=== PATIENT | female | born 2000 ===

== ENCOUNTER 2022-02-17 12:25 | Inpatient (IN) | payer OTHER ==
[2022-02-17] VITALS (26 sets, daily range): BP systolic 89–148; BP diastolic 61–113; PULSE 66–102; TEMP 97.6–98.1
[~2022-02-17] VITALS: Ht 160 cm; Wt 70.5 kg
--- NOTE | 2022-02-17 12:35 | NUR ---
Patient ambulatory to LR4, changed into gown, FHR/TOCO monitors placed and explained. Patient states she had a gush of fluid at about 1015 and has continued to leak clear fluid/pink tinged. Patient denies any regular contractions/vaginal bleeding/decreased movement. Plan of care discussed. This RN swabs pad with amniotest and turns positive. SVE-2/70/-2 and amniotest negative. 1315: IV started in right hand, labs obtained, flushed.
[2022-02-17] MEDS ORDERED: PRENATAL (13:00)
[2022-02-17] MEDS ORDERED: LOVENOX 6060 MG/0.6 SQ (13:01)
[2022-02-17 13:17] LABS: BASO # 0.1 K/mm3 (0.0-0.2); BASO % 0.4 % (0.0-2.0); EOS # 0.1 K/mm3 (0.0-0.7); EOS % 0.5 % (0.0-4.0); GRAN # 11.7 K/mm3 (1.4-6.5); GRAN % 84.2 % (42.2-75.2); HEMOGLOBIN 11.5 g/dl (12.5-16.0); LYMPH # 1.1 K/mm3 (1.2-3.4); MEAN CELL VOLUME 86 fl (80.0-100.0); MEAN CORPUSCULAR HEMOGLOBIN 28 pg (27-31); MEAN CORPUSCULAR HGB CONC 33 g/dl (33.0-37.0); MEAN PLATELET VOLUME 11.7 fl (7.4-10.4); MONO # 0.8 K/mm3 (0.1-0.6); MONO % 5.5 % (1.7-9.3); PLATELET COUNT 203 K/mm3 (130-400); RED BLOOD COUNT 4.09 M/mm3 (4.10-5.30); REDCELL DISTRIBUTION WIDTH-CV 13.8 % (11.5-14.5)
[2022-02-17 13:20] LABS: HEMATOCRIT 35.3 % (37.0-47.0)
[2022-02-17 14:23] LABS: PROTHROMBIN TIME 10.9 SECONDS (9.7-12.8)
[2022-02-17 14:25] LABS: PARTIAL THROMBOPLASTIN TIME 28.2 SECONDS (26.0-37.0)
[2022-02-17 14:29] LABS: ALBUMIN 2.6 gm/dL (3.5-5.0); BILIRUBIN,TOTAL 0.3 mg/dL (0.2-1.2); CALCIUM 8.2 mg/dL (8.4-10.2); CREATININE, serum 0.56 mg/dL (0.57-1.11); POTASSIUM 3.9 mmol/L (3.5-4.5); TOTAL PROTEIN 6.9 gm/dL (6.2-8.1)
--- NOTE | 2022-02-17 15:45 | NUR ---
1410 Heparin Bolus given. 1420 Heparin drip starts infusing. 1438 Dr. Meyers requests heparin drip to be stopped due to FHR decelerations. 1450 Dr. Meyers called after prolonged late deceleration. 1505 Dr. Meyers at patient's bedside. SVE /-2. SVE unchanged since [address] Meyers discusses section and general anethesia with patient. Patient verbalizes understanding.
[2022-02-17 21:22] LABS: HEMOGLOBIN 11.6 g/dl (12.5-16.0)
[2022-02-17 21:24] LABS: HEMATOCRIT 36.3 % (37.0-47.0)
[2022-02-18 00:20] VITALS: BP 116/73; PULSE 76; TEMP 97.7
[2022-02-18 04:00] VITALS: BP 114/67; PULSE 69; TEMP 98.6
[2022-02-18 05:59] LABS: HEMOGLOBIN 10.6 g/dl (12.5-16.0); MEAN CELL VOLUME 90 fl (80.0-100.0); MEAN CORPUSCULAR HEMOGLOBIN 28 pg (27-31); MEAN CORPUSCULAR HGB CONC 32 g/dl (33.0-37.0); MEAN PLATELET VOLUME 12.2 fl (7.4-10.4); PLATELET COUNT 218 K/mm3 (130-400); RED BLOOD COUNT 3.73 M/mm3 (4.10-5.30); REDCELL DISTRIBUTION WIDTH-CV 13.7 % (11.5-14.5)
[2022-02-18 06:06] LABS: HEMATOCRIT 33.5 % (37.0-47.0)
[2022-02-18 08:15] VITALS: BP 116/64; PULSE 72; TEMP 97.7
--- NOTE | 2022-02-18 09:08 | NUR ---
Initial visit; Parents thanked [employer] for offering congratulations and God's blessings for the of their son. [employer]ician Helper thanked family for choosing [place].
[2022-02-18 15:40] LABS: HEMOGLOBIN 10.5 g/dl (12.5-16.0)
[2022-02-18 15:46] LABS: HEMATOCRIT 32.7 % (37.0-47.0)
[2022-02-18 16:40] VITALS: BP 111/64; PULSE 76; TEMP 97.6
--- NOTE | 2022-02-18 20:25 | NUR ---
DR. TORRES CAME TO UNIT TO DISCUSS PLAN WITH NURSE AND PATIENT. PER PHYSICIAN'S VERBAL ORDERS, NURSING STAFF IS TO DISCONTINUE HEPARIN GTT AND LABWORK. PHYSICIAN ORDERED TO RESTART LOVENOX. DR. TORRES REQUESTED DR. HERNANDEZ CALL HIM TOMORROW TO RESTART PATIENT ON HER USUAL WARFARIN.
[2022-02-18 21:00] VITALS: BP 115/68; PULSE 87; TEMP 98.1
--- NOTE | 2022-02-18 21:34 | NUR ---
ACTIVE BLEEDING NOTED AT THE INCISION SITE. SITE DRESSED WTIH TELFA AND ABD PAD. BINDER IN PLACE. CHARGE NURSE AWARE. WILL CONTINUE TO MONITOR FOR SIGNS OF INCREASED BLEEDING.
--- NOTE | 2022-02-19 02:30 | NUR ---
PATIENT ALERTED NURSE OF INCREASED BLEEDING AT THE INCISION SITE. ACTIVE BRIGHT-RED BLEEDING NOTED. ONE-HALF OF ABD PAD SATURATED WITH BLOOD. STERI-STRIPS NOTED TO BE LOOSENING UP IN THE MIDDLE OF INCISION. CHARGE NURSE NOTIFIED AND INSPECTED WOUND. TELFA, 4X4 GUAZE AND ABD PAD APPLIED WITH TAPE. WASH CLOTH APPLIED ON TOP OF DRESSING AND ABDOMINAL BINDER APPLIED. PHYSICIAN TO BE NOTIFIED.
--- NOTE | 2022-02-19 04:35 | NUR ---
SLIGHT BLUSH NOTED TO OUTER ABDOMINAL DRESSING. WILL CONTINUE TO MONITOR FOR INCREASED BLEEDING.
[2022-02-19 07:00] VITALS: BP 121/75; PULSE 78; TEMP 98.4
--- NOTE | 2022-02-19 08:30 | NUR ---
AT BEDSIDE. ABDOMINAL DRESSING REMOVED AT THIS TIME, NO ACTIVE BLEEDING NOTED, FRESHLY CLOTTED BLOOD PRESENT ON INCISION. NO DRAINAGE THROUGH DRESSING. NO ODOR. PT DENIES PAIN AT SITE. INCISION CLEANSED AND PRESSURE DRESSING APPLIED BY THIS NURSE. ICE PACK TO INCISION/BINDER ON. DISCUSSES POTENTIAL DC HOME TODAY, PT REQUESTING TO WAIT UNTIL EVENING TO FURTHER MONITOR BLEEDING. ALSO DISCUSSES PLAN FOR (CARDIOLOGY) TO RESTART HER COUMADIN TODAY PER HIS DOSING, PT AGREEABLE TO POC AND DENIES QUESTIONS OR CONCERNS. VITAL SIGNS STABLE. LOCHIA SCANT. FUNDUS FIRM 2FB BELOW UMBILICUS. NO CLOTS NOTED. PT DENIES PAIN AT THIS TIME. WILL CONTINUE TO MONITOR BLEEDING.
[2022-02-19] MEDS ORDERED: TYLENOL 500MG500 MG PO (08:35)
[2022-02-19] MEDS ORDERED: ROXICODONE 55 MG/TAB PO (08:35)
--- NOTE | 2022-02-19 08:56 | NUR ---
[facility]Jase PER DR.NEWCOMER YAMILETH BOOKER, BEGIN PT ON TYLENOL PO 1000MG Q6H SCHEDULED, AND PO PRN ROXICODONE 5MG Q4H FOR BREAKTHROUGH PAIN
--- NOTE | 2022-02-19 11:00 | NUR ---
BERNARDO HUFF APRN FOR (CARDIOLOGY) AT BEDSIDE. VORB TO BEGIN COUMADIN 10MG TONIGHT (02/19/22) AND 10MG TOMORROW HS, THEN BEGIN 6MG ON NIGHT #3. TO BEGIN DAILY INR'S FOLLOWING TONIGHT'S DOSE (FIRST INR 02/20/22 IN AM). PT WAS ON COUMADIN PRIOR TO AND AWARE OF OUTPATIENT INR LAB DRAWS AT [facility] WITH HER PCP CLINIC. WILL KEEP LOVENOX DOSE THE SAME AT THIS TIME TO BRIDGE MEDICATIONS. ORDERS PLACED IN [employer] AT THIS TIME BY THIS RN. PT DENIES FURTHER QUESTIONS OR CONCERNS. DRESSING TO ABDOMINAL INCISION CDI AT THIS TIME, NO FURTHER OOZING NOTED.
[2022-02-19 12:30] VITALS: BP 126/68; PULSE 70; TEMP 98
[2022-02-19] MEDS ORDERED: COUMADIN 6MG6 MG/TAB PO (12:54)
[2022-02-19] MEDS ORDERED: COUMADIN 1010 MG/TAB PO (12:54)
--- NOTE | 2022-02-19 12:55 | NUR ---
PT REQUESTING TO DC THIS EVENING. CALL TO BERNARDO HUFF APRN TO PUT IN DC MEDICATION ORDERS AND INR LAB DRAW ORDERS. LAURA STATES HE IS SENDING KONZA ORDERS TO INR LAB DRAW TOMORROW, PT IS AWARE AND HAS ALREADY BEING FOLLOWED BY CLINIC PRIOR TO . LAURA STATES HE WILL PUT DC MEDICATION ORDERS IN SHORTLY.
--- NOTE | 2022-02-19 15:35 | NUR ---
AT BEDSIDE. ORDERS PT TO BEGIN COUMADIN 10MG TONIGHT AND TOMORROW NIGHT, RESUME LOVENOX 60MG SUBQ BID, AND GET INR CHECKED TOMORROW AND WEDNESDAY MORNING. CELL PHONE NUMBER PROVIDED FOR PT TO CALL WEDNESDAY WITH INR RESULTS ON WEDNESDAY FOR FURTHER LOVENOX ORDERS AND DC DATE. PT AGREEABLE TO DC POC AND DENIES FURTHER QUESTIONS OR CONCERNS. ALL DC APPOINTMENTS AND MEDICATIONS REVIEWED IN DEPTH AT THIS TIME BY THIS NURSE.
[2022-02-19 16:15] VITALS: BP 117/64; PULSE 68; TEMP 98
== END 2022-02-19 16:27 | disposition home or self-care (01) | DRG 788 ==
LOC: LDRO 12:25 → LDR 12:50 → OB 12:50
PROVIDERS: Internal Medicine; Physician Assistant; Student in an Organized Health Care Education/Training Program; ADMIT Obstetrics & Gynecology
PROC: 10D00Z1 Extraction of Products of Conception, Low, Open Approach (ICD-10-PCS; principal; 2022-02-17)
DX: O99.824 Streptococcus B carrier state complicating childbirth (principal); O76 Abnormality in fetal heart rate and rhythm complicating labor and delivery; O99.52 Diseases of the respiratory system complicating childbirth; J45.909 Unspecified asthma, uncomplicated; O99.62 Diseases of the digestive system complicating childbirth; K21.9 Gastro-esophageal reflux disease without esophagitis; O75.89 Other specified complications of labor and delivery; M41.9 Scoliosis, unspecified; Z37.0 Single live birth; Z3A.38 38 weeks gestation of pregnancy; Z95.4 Presence of other heart-valve replacement; Z79.01 Long term (current) use of anticoagulants
CPT/HCPCS: 99223; 99232-AI; J0330; J0690; J1100; J1644; J1650; J2270; J2370; J2540; J2590; J2704; J2710; J2720; J3010; J7120